=== PATIENT | male | born 1990 | race Caucasian/White ===

== ENCOUNTER 2017-06-26 16:03 | Emergency (ER) | payer BC ==
[2017-06-26 16:19] VITALS: BP 139/80
--- NOTE | 2017-06-26 16:20 | EDM.PDOC ---
ED HPI GENERAL MEDICAL PROBLEM - General Chief Complaint: Gastrointestinal Problem Stated Complaint: STOMACH ISSUES AND FEVER Time Seen by Provider: 06/26/17 16:19 Source of Information: Reports: Patient History Limitations: Reports: No Limitations - History of Present Illness INITIAL COMMENTS - FREE TEXT/NARRATIVE: 26-year-old male presents for evaluation and treatment of abdominal cramping, nausea and diarrhea. Patient reports that his symptoms started at around 0200 this morning. He states he has had about 3 or 4 episodes of emesis. He states he has had "countless" episodes of diarrhea. Reports the emesis is dark brown and black. He reports abdominal cramping and epigastric area. He reports associated symptoms of nausea, chills and fever. Reports he had a temperature of 100.6 at home. He also reports he's had a little bit of a cough. No ill contacts. No recent travel. He states he has not had any questionable foods. Patient reports that he chews tobacco. She is bout one can every 2-3 days. Uses alcohol only on occasion. No illicit drug use. He is not any medications. No previous abdominal surgeries. Onset: Today Location: Reports: Abdomen (epigastric) Abdominal Pain Score (Numeric/FACES): 7 - Related Data Allergies Allergy/AdvReac Type Severity Reaction Status Date / Time No Known Allergies Allergy Verified 06/26/17 16:09 Home Meds: Home Meds . [No Known Home Meds] 04/17/16 [History] Past Medical History - Past Health History Medical/Surgical History: Denies Medical/Surgical History Social & Family History - Family History Family Medical History: Noncontributory - Tobacco Use Smoking Status *Q: Never Smoker Years of Tobacco use: 8 - Alcohol Use Days Per Week of Alcohol Use: 2 Number of Drinks Per Day: 2 Total Drinks Per Week: 4 - Recreational Drug Use Recreational Drug Use: No ED ROS GENERAL - Review of Systems Review Of Systems: See Below Constitutional: Reports: Fever (100.6 at home) Respiratory: Reports: Cough ("little bit") GI/Abdominal: Reports: Abdominal Pain (epigastric area, cramping), Diarrhea ( countless episodes), Nausea, Vomiting (3-4 times today) : Reports: No Symptoms ED EXAM, GI/ABD - Physical Exam Exam: See Below Exam Limited By: No Limitations General Appearance: Alert, WD/WN, No Apparent Distress, Other (no active emesis) Ears: Normal External Exam, Normal Canal, Hearing Grossly Normal, Normal TMs Nose: Normal Inspection Throat/Mouth: Normal Inspection, Normal Oropharynx, Normal Voice, No Airway Compromise, Other (lips are dry) Respiratory/Chest: No Respiratory Distress, Lungs Clear, Normal Breath Sounds Cardiovascular: Normal Peripheral Pulses, Regular Rate, Rhythm, No Murmur GI/Abdominal Exam: Normal Bowel Sounds, Soft, Tender (epigastric area) Neurological: Alert, Oriented, Normal Cognition Psychiatric: Normal Affect, Normal Mood Skin Exam: Warm, Dry, Normal Color Course - Vital Signs Last Recorded V/S: Last Vital Signs Temp 37.2 C 06/26/17 16:09 Pulse 101 H 06/26/17 16:09 Resp 16 06/26/17 16:09 BP 139/80 06/26/17 16:09 Pulse Ox 97 06/26/17 16:09 - Orders/Labs/Meds Labs: Laboratory Tests 06/26/17 06/26/17 06/26/17 Range/Units 16:20 16:20 17:09 WBC 9.42 H (4.23-9.07) K/mm3 RBC 5.17 (4.63-6.08) M/mm3 Hgb 15.6 (13.7-17.5) gm/L Hct 44.3 (40.1-51.0) % MCV 85.7 (79.0-92.2) fl MCH 30.2 (25.7-32.2) pg MCHC 35.2 (32.2-35.5) g/dl RDW Std Deviation 37.2 (35.1-43.9) fL Plt Count 192 (163-337) K/mm3 MPV 10.2 (9.4-12.3) fl Neutrophils % (Manual) 91 H (40-60) % Band Neutrophils % 0 (0-10) % Lymphocytes % (Manual) 6 L (20-40) % Atypical Lymphs % 0 % Monocytes % (Manual) 3 (2-10) % Eosinophils % (Manual) 0 L (0.8-7.0) % Basophils % (Manual) 0 L (0.2-1.2) Platelet Estimate Adequate RBC Morph Comment Normal Sodium 140 (136-145) mEq/L Potassium 4.0 (3.5-5.1) mEq/L Chloride 104 (98-107) mEq/L Carbon Dioxide 22 (21-32) mEq/L Anion Gap 18.0 H (5-15) BUN 13 (7-18) mg/dL Creatinine 1.0 (0.7-1.3) mg/dL Est Cr Clr Drug Dosing 104.66 mL/min Estimated GFR (MDRD) > 60 (>60) mL/min BUN/Creatinine Ratio 13.0 L (14-18) Glucose 101 (74-106) mg/dL Calcium 9.4 (8.5-10.1) mg/dL Magnesium 1.7 L (1.8-2.4) mg/dl Total Bilirubin 0.7 (0.2-1.0) mg/dL AST 21 (15-37) U/L ALT 40 (16-63) U/L Alkaline Phosphatase 79 (46-116) U/L Total Protein 8.1 (6.4-8.2) g/dl Albumin 4.6 (3.4-5.0) g/dl Globulin 3.5 gm/dL Albumin/Globulin Ratio 1.3 (1-2) Lipase 113 (73-393) U/L Urine Color Yellow (Yellow) Urine Appearance Clear (Clear) Urine pH 5.5 (5.0-8.0) Ur Specific [place] > or = 1.030 (1.005-1.030) Urine Protein Negative (Negative) Urine Glucose (UA) Negative (Negative) Urine Ketones Negative (Negative) Urine Occult Blood Trace-intact H (Negative) Urine Nitrite Negative (Negative) Urine Bilirubin Negative (Negative) Urine Urobilinogen 0.2 (0.2-1.0) Ur Leukocyte Esterase Negative (Negative) Urine RBC 0-5 (0-5) /hpf Urine WBC 0-5 (0-5) /hpf Ur Epithelial Cells 0-5 (0-5) /hpf Urine Bacteria Few (FEW) /hpf Urine Mucus Few (FEW) /hpf Meds: Medications Discontinued Medications Generic Name Dose Route Start Last Admin Trade Name Freq PRN Reason Stop Dose Admin Dicyclomine HCl 10 mg 06/26/17 17:37 06/26/17 17:41 Bentyl PO 06/26/17 17:38 10 mg ONETIME ONE Administration Famotidine 20 mg 06/26/17 16:28 06/26/17 16:43 Pepcid IVPUSH 06/26/17 16:29 20 mg ONETIME ONE Administration Sodium Chloride 1,000 mls @ 999 mls/hr 06/26/17 16:27 06/26/17 16:38 Normal Saline IV 06/26/17 17:27 999 mls/hr ONETIME ONE Administration Sodium Chloride 1,000 mls @ 999 mls/hr 06/26/17 18:01 06/26/17 18:06 Normal Saline IV 06/26/17 19:01 999 mls/hr ONETIME ONE Administration Ketorolac Tromethamine 15 mg 06/26/17 16:32 06/26/17 16:41 Toradol IVPUSH 06/26/17 16:33 15 mg ONETIME ONE Administration Ondansetron HCl 4 mg 06/26/17 16:28 06/26/17 16:39 Zofran IVPUSH 06/26/17 16:29 4 mg ONETIME ONE Administration Sodium Chloride 10 ml 06/26/17 16:28 06/26/17 16:44 Saline Flush FLUSH 10 ml ASDIRECTED PRN Administration Keep Vein Open - Radiology Interpretation Free Text/Narrative:: 1 view upright xray shows no free air - Re-Assessments/Exams Free Text/Narrative Re-Assessment/Exam: 06/26/17 18:40 influenza returned negative. Informed the patient of the labs and imaging results with the patient. No emesis or diarrhea since entering the ER. The brown/black emesis is likely from chewing tobacco. I feel it is unlikely the patient has an upper GI bleed. Will discharge home. Instructed to return if symptoms change or worsen. He was offered zofran for home but he declined. Discharge instructions as documented. Departure - Departure Time of Disposition: 18:42 Disposition: Home, Self-Care 01 Condition: Fair Clinical Impression: Viral gastroenteritis - Discharge Information Instructions: Viral Gastroenteritis, Adult, [id number] Referrals: PCP,None [Primary Care Provider] - Micah Hernandez PA-C [Physician Robotics Mechanic] - Forms: ED Department Discharge Additional Instructions: [id number] Tylenol or motrin as needed for symptom relief. Recommend clear fluids and a bland diet today and tomorrow. may advance to a more regular diet Wednesday as tolerated. Recommend starting an [id number] probiotic. Rest. Follow-up with family medicine if your symptoms have not improved much by the end of this week. Recommend Micah Hernandez or Dr. crespo at the [facility]. Call [phone] to schedule with one of them. Please return to the ER if your symptoms change or worsen.
[2017-06-26] MEDS ORDERED: Sodium Chloride 0.9% 1,000 ML IV ONE ×2 (16:27→18:01)
[2017-06-26] MEDS ORDERED: Famotidine 20 MG/2 ML SDV IVPUSH ONE (16:28)
[2017-06-26] MEDS ORDERED: Ondansetron 4 MG/2 ML SDV IVPUSH ONE (16:28)
[2017-06-26] MEDS ORDERED: Sodium Chloride 0.9% 10 ML Syringe FLUSH PRN (16:28)
[2017-06-26] MEDS ORDERED: Ketorolac 15 MG/ML SDV IVPUSH ONE (16:32)
[2017-06-26] MEDS ORDERED: Dicyclomine 10 MG Cap PO ONE (17:37)
--- NOTE | 2017-06-27 12:13 | CR ---
Abdomen: Supine and upright views of the abdomen were obtained. Comparison: No prior abdominal x-ray. Bowel gas pattern appears normal. No abnormal calcifications or soft tissue abnormality is seen. Slight scoliosis is noted within the spine. Impression: 1. Incidental finding. Nothing acute is seen. Diagnostic code #2
== END 2017-06-26 19:16 | disposition home or self-care (01) ==
LOC: JD.ED 16:03
DX: A08.4 Viral intestinal infection, unspecified (principal)
CPT/HCPCS: 36415; 74018; 80053; 81001; 83690; 83735; 85025; 87804; 96361; 96374; 96375; 99284; A9270; J1885; J2405; J7040; J7050

== ENCOUNTER 2017-11-02 19:01 | Emergency (ER) | payer BC, MEDICAID ==
[2017-11-02 19:09] VITALS: BP 148/89
--- NOTE | 2017-11-02 19:37 | EDM.PDOC ---
ED HPI GENERAL MEDICAL PROBLEM - General Chief Complaint: Lower Extremity Injury/Pain Stated Complaint: RIGHT KNEE Time Seen by Provider: 11/02/17 19:22 Source of Information: Reports: Patient, RN Notes Reviewed - History of Present Illness INITIAL COMMENTS - FREE TEXT/NARRATIVE: 27-year-old male suffered laceration/abrasion injury left lower leg around 5 AM this past morning about 14 hours ago. 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 Snapped back with the bar striking the left lower leg with resultant laceration/abrasion injury. He has Been ambulatory throughout the day with mild localized discomfort. He states he last had a tetanus immunization about 3-5 years ago. Right Leg Pain Score (Numeric/FACES): 6 - Related Data Allergies Allergy/AdvReac Type Severity Reaction Status Date / Time No Known Allergies Allergy Verified 11/02/17 19:09 Home Meds: Home Meds . [No Known Home Meds] 04/17/16 [History] Past Medical History - Past Health History Medical/Surgical History: Denies Medical/Surgical History Social & Family History - Family History Family Medical History: Noncontributory - Tobacco Use Smoking Status *Q: Never Smoker - Caffeine Use Caffeine Use: Reports: Energy Drinks, Soda - Recreational Drug Use Recreational Drug Use: No Review of Systems - Review of Systems Review Of Systems: See Below Constitutional: Reports: No Symptoms Respiratory: Reports: No Symptoms Cardiovascular: Reports: No Symptoms GI/Abdominal: Reports: No Symptoms Musculoskeletal: Reports: Other (Laceration/abrasion injury left lower anterior leg) ED EXAM, GENERAL - Physical Exam Exam: See Below General Appearance: Alert, No Apparent Distress Head: Atraumatic Neck: Supple Respiratory/Chest: No Respiratory Distress Extremities: Other (3 cm mildly deep laceration abrasion injury left lower anterior leg. edges in the center of the lac are very mildly gaping, about 3-4 mm. No foreign material seen. The laceration is not deep. There is some separation pressure due to the area of the injury. No bony tenderness.) Course - Vital Signs Last Recorded V/S: Last Vital Signs Temp 98.4 F 11/02/17 19:06 Pulse 88 11/02/17 19:06 Resp 16 11/02/17 19:06 BP 148/89 H 11/02/17 19:06 Pulse Ox 99 11/02/17 19:06 - Re-Assessments/Exams Free Text/Narrative Re-Assessment/Exam: 11/02/17 23:02 It is been 14 hours since the injury. Therefore I am extremely reluctant to consider suturing the wound. Due to the blunt trauma causing the injury and 14 hours of time since this occurred the wound is far from sterile. I have explained to patient and his that risk of infection if we do suture the wound is going to be very high even with antibiotics. This will heal well on its own with good wound care although it will take somewhat longer. Discharge instructions as documented. Departure - Departure Time of Disposition: 19:37 Disposition: Home, Self-Care 01 Condition: Fair Clinical Impression: Laceration of leg Qualifiers: Encounter type: initial encounter Laterality: right Qualified Code(s): S81.811A - Laceration without foreign body, right lower leg, initial encounter - Discharge Information Instructions: Laceration Care, Adult, [id number] Referrals: Alana Chapman SHOP GIRL [Primary Care Provider] - Forms: ED Department Discharge Additional Instructions: lac care instr. rest and elevate leg as much as possible, keep the dressing we have applied on for 48 to 72 hours, keep dry and clean, than change dressings 1 to 2 times daily using nonstick telfa type pad over wound and than wrap with cling pressure dressing. Have rechecked any sign of infection.
== END 2017-11-02 20:00 | disposition home or self-care (01) ==
LOC: JD.ED 19:01
DX: S81.811A Laceration without foreign body, right lower leg, initial encounter (principal); W22.8XXA Striking against or struck by other objects, initial encounter
CPT/HCPCS: 99283

== ENCOUNTER 2018-02-01 20:55 | Emergency (ER) | payer BC, MEDICAID ==
[2018-02-01 21:09] VITALS: BP 167/122
[2018-02-01] MEDS ORDERED: Sodium Chloride 0.9% 1,000 ML IV ONE (21:51)
[2018-02-01] MEDS ORDERED: Ketorolac 60 MG/2 ML SDV IVPUSH ONE (21:52)
[2018-02-01] MEDS: Ondansetron 4 MG/2 ML SDV IVPUSH ONE ×2 (21:58→21:59)
[2018-02-01] MEDS ORDERED: Tamsulosin 0.4 MG Cap.ER PO ONE (23:28)
[2018-02-01] MEDS ORDERED: HYDROmorphone 1 MG/ML Syringe IVPUSH ONE (23:29)
[2018-02-01] MEDS ORDERED: Sodium Chloride 0.9% 500 ML IV ONE (23:35)
--- NOTE | 2018-02-02 00:59 | EDM.PDOC ---
ED HPI GENERAL MEDICAL PROBLEM - General Chief Complaint: Abdominal Pain Stated Complaint: RIGHT SIDE PAIN Time Seen by Provider: 02/01/18 21:36 Source of Information: Reports: Patient Right Abdomen Pain Score (Numeric/FACES): 8 - Related Data Allergies Allergy/AdvReac Type Severity Reaction Status Date / Time No Known Allergies Allergy Verified 02/01/18 21:07 Home Meds: Home Meds . [No Known Home Meds] 04/17/16 [History] Past Medical History - Past Health History Medical/Surgical History: Denies Medical/Surgical History Social & Family History - Family History Family Medical History: Noncontributory - Tobacco Use Smoking Status *Q: Never Smoker - Caffeine Use Caffeine Use: Reports: Soda - Recreational Drug Use Recreational Drug Use: No ED ROS GENERAL - Review of Systems Review Of Systems: See Below ED EXAM, RENAL/ - Physical Exam Exam: See Below Course - Vital Signs Last Recorded V/S: Last Vital Signs Temp 36.6 C 02/01/18 21:07 Pulse 99 02/01/18 21:07 Resp 16 02/01/18 21:07 BP 167/122 H 02/01/18 21:07 Pulse Ox 99 02/01/18 21:07 - Orders/Labs/Meds Orders: Active Orders 24 hr Category Date Time Status Abdomen Pelvis wo Cont [CT] Stat Exams 02/01/18 22:53 Taken UA W/MICROSCOPIC [URIN] Stat Lab 02/01/18 21:36 Ordered Labs: Laboratory Tests 02/01/18 02/01/18 02/01/18 Range/Units 21:36 21:43 21:43 WBC 9.75 H (4.23-9.07) K/mm3 RBC 4.99 (4.63-6.08) M/mm3 Hgb 15.1 (13.7-17.5) gm/L Hct 43.1 (40.1-51.0) % MCV 86.4 (79.0-92.2) fl MCH 30.3 (25.7-32.2) pg MCHC 35.0 (32.2-35.5) g/dl RDW Std Deviation 38.0 (35.1-43.9) fL Plt Count 328 (163-337) K/mm3 MPV 9.7 (9.4-12.3) fl Neut % (Auto) 55.8 (34.0-67.9) % Lymph % (Auto) 37.2 (21.8-53.1) % [place] % (Auto) 5.9 (5.3-12.2) % Eos % (Auto) 0.7 L (0.8-7.0) Baso % (Auto) 0.3 (0.1-1.2) % Neut # (Auto) 5.43 H (1.78-5.38) K/mm3 Lymph # (Auto) 3.63 H (1.32-3.57) K/mm3 [place] # (Auto) 0.58 (0.30-0.82) K/mm3 Eos # (Auto) 0.07 (0.04-0.54) K/mm3 Baso # (Auto) 0.03 (0.01-0.08) K/mm3 Sodium (136-145) mEq/L Potassium (3.5-5.1) mEq/L Chloride (98-107) mEq/L Carbon Dioxide (21-32) mEq/L Anion Gap (5-15) BUN (7-18) mg/dL Creatinine (0.7-1.3) mg/dL Est Cr Clr Drug Dosing mL/min Estimated GFR (MDRD) (>60) mL/min BUN/Creatinine Ratio (14-18) Glucose (74-106) mg/dL Calcium (8.5-10.1) mg/dL Total Bilirubin (0.2-1.0) mg/dL AST (15-37) U/L ALT (16-63) U/L Alkaline Phosphatase (46-116) U/L Total Protein (6.4-8.2) g/dl Albumin (3.4-5.0) g/dl Globulin gm/dL Albumin/Globulin Ratio (1-2) Amylase 46 (25-115) U/L Urine Color Yellow (Yellow) Urine Appearance Clear (Clear) Urine pH 6.5 (5.0-8.0) Ur Specific [place] > or = 1.030 (1.005-1.030) Urine Protein Trace H (Negative) Urine Glucose (UA) Negative (Negative) Urine Ketones Trace H (Negative) Urine Occult Blood 2+ H (Negative) Urine Nitrite Negative (Negative) Urine Bilirubin Negative (Negative) Urine Urobilinogen 0.2 (0.2-1.0) Ur Leukocyte Esterase Negative (Negative) Urine RBC 5-10 H (0-5) /hpf Urine WBC 0-5 (0-5) /hpf Ur Epithelial Cells 0-5 (0-5) /hpf Calcium Oxalate Crystal Few H (NONE) Urine Bacteria Few (FEW) /hpf Hyaline Casts 0-5 (0-5) /lpf Urine Mucus Many H (FEW) /hpf 02/01/18 Range/Units 21:43 WBC (4.23-9.07) K/mm3 RBC (4.63-6.08) M/mm3 Hgb (13.7-17.5) gm/L Hct (40.1-51.0) % MCV (79.0-92.2) fl MCH (25.7-32.2) pg MCHC (32.2-35.5) g/dl RDW Std Deviation (35.1-43.9) fL Plt Count (163-337) K/mm3 MPV (9.4-12.3) fl Neut % (Auto) (34.0-67.9) % Lymph % (Auto) (21.8-53.1) % [place] % (Auto) (5.3-12.2) % Eos % (Auto) (0.8-7.0) Baso % (Auto) (0.1-1.2) % Neut # (Auto) (1.78-5.38) K/mm3 Lymph # (Auto) (1.32-3.57) K/mm3 [place] # (Auto) (0.30-0.82) K/mm3 Eos # (Auto) (0.04-0.54) K/mm3 Baso # (Auto) (0.01-0.08) K/mm3 Sodium 146 H (136-145) mEq/L Potassium 3.3 L (3.5-5.1) mEq/L Chloride 107 (98-107) mEq/L Carbon Dioxide 26 (21-32) mEq/L Anion Gap 16.3 H (5-15) BUN 8 (7-18) mg/dL Creatinine 1.1 (0.7-1.3) mg/dL Est Cr Clr Drug Dosing 94.31 mL/min Estimated GFR (MDRD) > 60 (>60) mL/min BUN/Creatinine Ratio 7.3 L (14-18) Glucose 120 H (74-106) mg/dL Calcium 8.9 (8.5-10.1) mg/dL Total Bilirubin 0.4 (0.2-1.0) mg/dL AST 26 (15-37) U/L ALT 43 (16-63) U/L Alkaline Phosphatase 81 (46-116) U/L Total Protein 7.7 (6.4-8.2) g/dl Albumin 4.2 (3.4-5.0) g/dl Globulin 3.5 gm/dL Albumin/Globulin Ratio 1.2 (1-2) Amylase (25-115) U/L Urine Color (Yellow) Urine Appearance (Clear) Urine pH (5.0-8.0) Ur Specific [place] (1.005-1.030) Urine Protein (Negative) Urine Glucose (UA) (Negative) Urine Ketones (Negative) Urine Occult Blood (Negative) Urine Nitrite (Negative) Urine Bilirubin (Negative) Urine Urobilinogen (0.2-1.0) Ur Leukocyte Esterase (Negative) Urine RBC (0-5) /hpf Urine WBC (0-5) /hpf Ur Epithelial Cells (0-5) /hpf Calcium Oxalate Crystal (NONE) Urine Bacteria (FEW) /hpf Hyaline Casts (0-5) /lpf Urine Mucus (FEW) /hpf Meds: Medications Discontinued Medications Generic Name Dose Route Start Last Admin Trade Name Freq PRN Reason Stop Dose Admin Hydromorphone HCl 1 mg 02/01/18 23:29 Dilaudid IVPUSH 02/01/18 23:30 ONETIME ONE Sodium Chloride 1,000 mls @ 999 mls/hr 02/01/18 21:51 02/01/18 21:59 Normal Saline IV 02/01/18 22:51 999 mls/hr ONETIME ONE Administration Sodium Chloride 500 mls @ 999 mls/hr 02/01/18 23:35 02/01/18 23:46 Normal Saline IV 02/02/18 00:05 999 mls/hr ONETIME ONE Administration Ketorolac Tromethamine 60 mg 02/01/18 21:52 02/01/18 21:59 Toradol IVPUSH 02/01/18 21:53 60 mg ONETIME ONE Administration Ondansetron HCl 4 mg 02/01/18 21:52 02/01/18 21:59 Zofran IVPUSH 02/01/18 21:53 4 mg ONETIME ONE Administration Tamsulosin HCl 0.4 mg 02/01/18 23:28 02/01/18 23:34 Flomax PO 02/01/18 23:29 0.4 mg ONETIME ONE Administration Departure - Departure Time of Disposition: 00:53 Disposition: Home, Self-Care 01 Condition: Good Clinical Impression: Ureterolithiasis - Discharge Information Referrals: PCP,None [Primary Care Provider] - Additional Instructions: Drink plenty of fluids. Take flomax daily unless symptoms resolve, then may stop. Strain all urines. Save any stones and bring them in for analysis. You have another smaller stone in the right kidney. It may or may not pass. Call or return if you develop a fever greater than 100 degrees. Followup with provider in clinic. - My Orders Last 24 Hours: My Active Orders 02/01/18 21:36 UA W/MICROSCOPIC [URIN] Stat 02/01/18 22:53 Abdomen Pelvis wo Cont [CT] Stat - Assessment/Plan Last 24 Hours: My Active Orders 02/01/18 21:36 UA W/MICROSCOPIC [URIN] Stat 02/01/18 22:53 Abdomen Pelvis wo Cont [CT] Stat
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
--- NOTE | 2018-02-02 15:05 | CT ---
CT abdomen and pelvis Technique: Multiple axial sections were obtained from above the dome of the diaphragm inferiorly through the pubic symphysis. Intravenous and oral contrast was not utilized. Comparison: Prior abdominal x-ray of 06/26/17, no previous CT exam. Findings: Kidneys show no abnormal calcifications. Right ureter is slightly prominent. This finding is caused by a small 3 mm stone located at the UVJ. Visualized lung bases show nothing acute. Liver shows no focal parenchymal abnormality. Spleen appears within normal limits. Adrenal glands show no nodule. Pancreas is normal. Aorta shows no aneurysmal dilatation. No retroperitoneal adenopathy or mesenteric abnormalities are seen. Appendix is seen which is normal. No pelvic mass or adenopathy is seen. No free fluid or inflammatory change is seen within the abdomen or pelvis. Bone window settings were reviewed which appear within normal limits for the patient's age. Impression: 1. Mild right-sided hydronephrosis caused by a 3 mm obstructing stone located at the UVJ. 2. No additional abnormality is seen on noncontrast CT study of the abdomen and pelvis. Diagnostic code #3 Agree with preliminary report issued by [facility] (report finalized on 02/02/18, 12:17 AM Central Time)
== END 2018-02-02 01:08 | disposition home or self-care (01) ==
LOC: JD.ED 20:55
DX: N13.2 Hydronephrosis with renal and ureteral calculous obstruction (principal)
CPT/HCPCS: 36415; 74176; 80053; 81001; 82150; 85025; 96361; 96374; 96375; 99284; A9270; J1885; J2405; J7040